=== PATIENT | female | born 1995 | race Caucasian/White ===

== ENCOUNTER 2022-05-19 12:23 | Emergency (ER) | payer OTHER, SELFPAY ==
[2022-05-19 13:30] VITALS: BP 126/73; PULSE 100; RESP 18; TEMP 36.1; O2SAT 99
--- NOTE | 2022-05-19 14:24 | ED.URI ---
HPI - URI/Sore Throat General Chief Complaint: Upper Respiratory Infection Stated Complaint: sorethroat Time Seen by Provider: 05/19/22 14:19 Source: patient and RN notes reviewed Mode of arrival: ambulatory Limitations: no limitations History of Present Illness HPI Narrative: 27-year-old female presented with complaint of sore throat for 2 days. She endorses mild postnasal drainage slight cough. She denies known sick contacts. She denies shortness of breath, wheezing, nausea vomiting, diarrhea, fevers or chills. She is 32 weeks gestation. She is taking Tylenol for symptoms. MD elicited complaint: cough Related Data Allergies Allergy/AdvReac Type Severity Reaction Status Date / Time No Known Allergies Allergy Unknown Verified 06/10/18 14:03 Review of Systems Review of Systems: ROS per HPI Exam Narrative: GENERAL:well-appearing, nontoxic no acute distress. HEAD: Normocephalic EYES: PERRLA, conjunctivae clear ENT: Mucous membranes moist. TMs pearly nunez with dull light reflex bilaterally; no tragal tenderness. Oropharynx erythematous without lesions or exudate, tonsils absent; no drooling, no hoarseness, no trismus, uvula midline. NECK: Supple. No lymphadenopathy CHEST: Clear to auscultation, breath sounds equal. HEART: Regular rate and rhythm. No murmur heard. SKIN: Warm, dry, no rash. Course Course Emergency Course: Patient is aware of diagnosis, understands and agrees to treatment plan. Anticipatory guidance given. Patient agrees to follow-up as directed and is aware of reasons to seek care at the emergency department. Portions of this record may have been created with voice recognition software Level of Care: Express Care Visit Vital Signs Vital signs: Vital Signs Temperature 97.0 F L 05/19/22 13:30 Pulse Rate 100 05/19/22 13:30 Respiratory Rate 18 05/19/22 13:30 Blood Pressure 126/73 05/19/22 13:30 Pulse Oximetry 99 05/19/22 13:30 Oxygen Delivery Room Air 05/19/22 13:30 Temperature 97.0 F L 05/19/22 13:30 Pulse Rate 100 05/19/22 13:30 Respiratory Rate 18 05/19/22 13:30 Blood Pressure 126/73 05/19/22 13:30 Pulse Oximetry 99 05/19/22 13:30 Oxygen Delivery Room Air 05/19/22 13:30 reviewed MDM - URI/Sore Throat MDM Narrative Medical decision making narrative: flu and strep reviewed with pt. Advised supportive measures and signs/symptoms to go to the ER. Pt is appropriate for outpt treatment and f/u. Differential Diagnosis Differential diagnosis: Likely upper respiratory infection, sinusitis and viral infection Lab Data Labs: Influenza A Screen Negative Reference Range: Negative Influenza B Screen Negative Reference Range: Negative Strep Screen Presumptive Negative *(Reference Range: Negative)* Discharge Plan Discharge Clinical Impression: Pharyngitis Patient Disposition: Home, Self-Care Condition: Stable Instructions: Pharyngitis (ED) Additional Instructions: Rapid strep swab was negative today You will be notified in a few days if the culture comes back positive for strep, and appropriate antibiotics will be called in at that time. if symptoms are due to a viral illness, it is not treated with antibiotics. Viral symptoms can be present for up to 10-14 days. Tylenol every 8 hours as needed for pain/fever Soft foods, cool liquids, warm tea. Gargle with warm saltwater twice a day. Chloraseptic spray and throat lozenges. Rest and stay hydrated. --Follow up with your PCP if symptoms are not improving, or sooner if symptoms are worsening. Go to the ER immediately if you cannot swallow your saliva, trouble breathing/wheezing, throat swelling, pain is persistent and severe Follow-up/Referrals: Louie,Ernestine Wynne EDGE ROLLER [Primary Care Provider] - Time of Di
== END 2022-05-19 14:30 | disposition home or self-care (01) ==
PROVIDERS: Emergency Provider Nurse Practitioner Family; PCP Registered Nurse
DX: J02.9 Acute pharyngitis, unspecified (principal)
CPT/HCPCS: 87081; 87147; 87804; 87880; 99213; G0463

== ENCOUNTER 2022-07-08 18:04 | Inpatient (IN) | payer OTHER, MEDICAID, SELFPAY ==
[2022-07-08] VITALS (11 sets, daily range): BP systolic 101–129; BP diastolic 44–78; PULSE 73–92; TEMP 36.5–36.8; BMI 48.8
--- NOTE | 2022-07-08 18:32 | LDADM ---
This patient, Mckenzie Briones, was admitted to Labor/Delivery/Recovery 107 on 07/08/22 at 18:04. Plans for labor, pain management and were discussed with patient. Patient/family oriented to hospital policies and general routines including ID bracelet, bed and alarms, visiting hours, pain management, procedures, bathroom and other care routines, personal items, smoking policy, room service/diet and guest tray routines, security routines, and visiting hours. Patient/Family are encouraged to report perceived risks to care and to ask questions if they do not understand what they are told or what they should do. See [facility]BIX for further documentation.
[2022-07-08 19:04] LABS: Basophils Percent Auto 0.2 % (0.2-1.2); Eosinophils Absolute Auto 0.1 K/mm3 (0-0.3); Eosinophils Percent Auto 0.5 % (0-4.4); Hematocrit 38.3 % (37.0-47.0); Immature Granulocyte Absolute 0.06 K/mm3 (0.00-0.031); Immature Granulocyte Percent A 0.5 % (0-0.5); Lymphocytes Absolute Auto 2.42 K/mm3 (0.9-3.2); Mean Corpuscular HGB Conc 33.9 g/dl (32-36); Mean Corpuscular Hemoglobin 29.6 pg (26-34); Mean Corpuscular Volume 87.2 fl (80-100); Mean Platelet Volume 10.6 fl (7.4-10.4); Monocytes Absolute Auto 0.8 K/mm3 (0.1-0.6); Monocytes Percent Auto 6.8 % (2.6-8.5); Neutrophils Absolute Auto 7.7 K/mm3 (1.3-6.7); Platelet Count Result 285 k/mm3 (150-375); Red Blood Count 4.39 M/mm3 (4.2-5.4); Red Cell Distribution Width 12.8 % (11.5-14.5)
[2022-07-08] MEDS: LACTATED RINGERS 1,000 ML 125 ML IV CONT (19:21)
[2022-07-08] MEDS: AMPICILLIN 2 GM/NS 100 ML 2 GM/100 ML BAG IVPB (19:22)
[2022-07-08] MEDS: DINOPROSTONE 10 MG VAG INSERT VAGINAL (20:57)
--- NOTE | 2022-07-08 21:21 | WPDANESEPP ---
Anes - Eval Pre Procedure Procedure: labor epidural Date/Time: 07/08/22 21:21 Pre Op Diagnosis: IOL Patient Data Age: 27 Gender: F Height: 1.75 m Weight: 150 kg Last Vital Signs Temp 36.8 C 07/08/22 18:41 Pulse 84 07/08/22 21:11 BP 104/53 L 07/08/22 21:11 O2 Del Method Room Air 07/08/22 18:29 Allergies Allergy/AdvReac Type Severity Reaction Status Date / Time No Known Allergies Allergy Unknown Verified 06/18/22 13:32 Home Medications Medication Instructions Recorded Confirmed Type amoxicillin 500 mg tablet 500 mg PO Q12H 10 days #20 tabs 05/21/22 Rx Laboratory Tests 07/08/22 07/08/22 07/08/22 18:14 18:14 18:14 WBC 11.0 K/mm3 H K/mm3 (4.5-10.0) RBC 4.39 M/mm3 M/mm3 (4.2-5.4) Hgb 13.0 g/dL g/dL (12.0-15.0) Hct 38.3 % % (37.0-47.0) MCV 87.2 fl fl (80-100) MCH 29.6 pg pg (26-34) MCHC 33.9 g/dl g/dl (32-36) RDW 12.8 % % (11.5-14.5) Plt Count 285 k/mm3 k/mm3 (150-375) MPV 10.6 fl H fl (7.4-10.4) Immature Gran % (Auto) 0.5 % % (0-0.5) Neut % (Auto) 70.0 % % (45.5-73.1) Lymph % (Auto) 22.0 % % (18.3-44.2) Milam % (Auto) 6.8 % % (2.6-8.5) Eos % (Auto) 0.5 % % (0-4.4) Baso % (Auto) 0.2 % % (0.2-1.2) Lymph # (Auto) 2.42 K/mm3 K/mm3 (0.9-3.2) Milam # (Auto) 0.8 K/mm3 H K/mm3 (0.1-0.6) Eos # (Auto) 0.1 K/mm3 K/mm3 (0-0.3) Baso # (Auto) 0.0 K/mm3 K/mm3 (0.0-0.1) Abs Immat Gran (auto) 0.06 K/mm3 H K/mm3 (0.00-0.031) Absolute Neuts (auto) 7.7 K/mm3 H K/mm3 (1.3-6.7) Absolute Nucleated RBC 0.0 K/mm3 K/mm3 (0.0-0.012) Nucleated RBC % 0.0 % % (0.0-0.2) RPR Pending Blood Type A Positive Antibody Screen Negative Patient hx anesthesia problems: none Family hx anesthesia problems: none Results Review: All pre-operative results and documents have been reviewed as part of the pre-operative evaluation. [facility] Past Medical History Medical History GERD (gastroesophageal reflux disease) Morbid obesity Psoriasis Family History Family History Grandparent Hypertension Chronic obstructive pulmonary disease Afib Neuropathy Social History Social History Smoking status: Never smoker Substance use: never Lack of Transportation: No Lack of Food: Never True Current Housing: I Have Housing Concerned About Future Housing: No Difficulty Paying Gas/Electric Bills: No Difficulty Paying for Meds: No Currently Unemployed: No Education: Trade/Vocational Certificate Difficulty w/ Childcare or Family Care: No Spiritual care concerns: No Exam Day of Procedure 07/08/22 21:21 Patient weight: morbidly obese Heart: regular rate and rhythm Lungs: normal air movement Airway: Mallampati scale Neurological: alert and oriented
[2022-07-08] MEDS: ONDANSETRON INJ 4 MG/2 ML VIAL IV PUSH (22:06)
[2022-07-08] MEDS: AMPICILLIN 1 GM/NS 50 ML 1 GM/50 ML BAG IVPB (23:33)
[2022-07-09] VITALS (239 sets, daily range): BP systolic 69–144; BP diastolic 43–89; PULSE 31–171; TEMP 36.3–37.6; O2SAT 77–100
[2022-07-09] MEDS: AMPICILLIN 1 GM/NS 50 ML 1 GM/50 ML BAG IVPB ×6 (03:30→23:43)
[2022-07-09] MEDS: OXYTOCIN 30 UNITS/NS 500 ML 30 UNITS/500 ML BAG 6 UNITS IV CONT (05:24)
[2022-07-09] MEDS: ONDANSETRON INJ 4 MG/2 ML VIAL IV PUSH ×3 (07:32→21:06)
--- NOTE | 2022-07-09 07:34 | WPDOBADMIT ---
Obstetrics - Admit Note Admission Note: record reviewed. No pertinent additions to the history and/or any subsequent changes in the physical findings that are not consistent with the expected course of the were found. IOL, /-2, AROM moderate amount of clear odorless fluid, anticipate vaginal delivery Additions to the history and/or subsequent changes in the physical findings follow. None.
[2022-07-09] MEDS: LACTATED RINGERS 1,000 ML 125 ML IV CONT ×2 (10:23→19:34)
[2022-07-09 12:38] LABS: Rapid Plasma Reagin Non-Reactive (NonReactive)
[2022-07-09] MEDS: CALCIUM CARBONATE (TUMS) 500 MG (200 MG ELEMENTAL) PO (19:20)
[2022-07-09] MEDS: FAMOTIDINE 20 MG/2 ML VIAL IV PUSH (20:24)
[2022-07-09] MEDS: diphenhydrAMINE HCl INJ 50 MG/ML VIAL 25 MG IV PUSH (22:03)
[2022-07-10] VITALS (44 sets, daily range): BP systolic 101–140; BP diastolic 43–121; PULSE 77–190; RESP 16–18; TEMP 36.4–37.6; O2SAT 91–100
[2022-07-10] MEDS: ACETAMINOPHEN 500 MG TABLET 1000 MG PO
--- NOTE | 2022-07-10 02:00 | PM.OBPRVD ---
OB - Delivery Note Procedure Delivery date: 07/10/22 Procedure: vaginal delivery Induction method: AROM, Per Pitocin Protocol and Per Cervidil Protocol Delivery monitor: External FHT and Internal Uterine Route of delivery: Episiotomy description: None Laceration Description: Perineal - 2nd Degree Delivery repair: vicryl Specimen: Yes Quantitative Blood Loss (ml): 420 Anesthesia type: Epidural Disposition: Floor [place] Baby Date of : 07/10/22 Time of : 01:39 Weeks of gestation at delivery: 39 gender: Female presentation: vertex position: Left Occiput Anterior Placenta delivery description: Spontaneous Cord Vessel Description: 3 Vessels, Clamped/Cut and Delayed Cord Clamping score one minute: 9 score five minutes: 9
--- NOTE | 2022-07-10 02:03 | PM.OBPRVD ---
OB - Delivery Note Procedure Laceration Description: Perineal - 2nd Degree Anesthesia type: Epidural Baby Date of : 07/10/22 Time of : 01:39 Weeks of gestation at delivery: 39 Infant gender: Female presentation: vertex position: Left Occiput Anterior Placenta delivery description: Spontaneous Cord Vessel Description: 3 Vessels, Clamped/Cut and Delayed Cord Clamping score one minute: 9 score five minutes: 9 Narrative: mother and baby skin to skin in stable condition
[2022-07-10] MEDS: IBUPROFEN 600 MG TABLET PO ×2 (04:09→18:24)
[2022-07-10] MEDS: ACETAMINOPHEN 325 MG TABLET 650 MG PO (07:53)
[2022-07-10] MEDS: DOCUSATE SODIUM 100 MG CAPSULE PO (07:54)
[2022-07-10] MEDS: MULTIVIT/MIN/PREN/FOL AC/IRON TABLET 1 TAB PO (07:54)
--- NOTE | 2022-07-10 16:08 | PC.NURSE ---
[id number] Introductions were made, then consulted with patient to assess needs related to . Mother led the conversation with her?plans to feed?her infant and the?experience so far. Resources provided for inpatient and outpatient services mom/baby guide. Mother voiced understanding of information and requests assistance. Mother works well with her with encouragement and education. Encouraged understanding of the benefits of skin to skin (demonstrating unwrapping infant and placing upright on her chest), stimulating with massage touch, changing positions to encourage wakefulness, how to watch for early feeding cues, responsive feeding, feeding on demand (aiming for 8-12 times in 24 hours, about every 2-3 hours), milk production, building/maintaining a milk supply, duration of feeding, signs of adequate intake/output and how to record on the feeding sheet. Reviewed positioning and ear, shoulder, hip alignment, supporting the breast to facilitate a deep latch, asymmetrical latch (off-center), leading with the chin with a big, open, wide gape and body close to mother. is sleepy and not motivated to open mouth to latch. is less than 12 hours old. Reviewed good handwashing when or touching the breast/nipples to prevent infection. Practiced the skill of hand expression and a few drops were fed to the infant. We discussed the option of initiating pumping along with the risks and benefits. had used the nipple shield with the two prior feedings and the risks and benefits were discussed regarding the use of the nipple shield. 1114 - Infant is in the nursery for testing. It has been 6 hours so Blood sugar will be checked. Mother requests to initiate pumping. Resources used to facilitate learning were used with the [visual handouts/QR codes/ tool/mom and baby guide]. Mother voiced understanding of skin to skin, stimulating with massage touch, responsive feedings, hand expressed colostrum, talking to to encourage if it has been 2 -2.5 hours since the start of the last , to call if does not latch, or if there is discomfort with . Resources provided for inpatient/outpatient with business card, feeding sheet and the mom/baby guide. Mother voiced understanding of information, demonstrated learning and will call if there is a request for assistance. 1130 Blood sugar resulted in 55 mg/dl. Breast pump provided due to ineffective . Instructions given on cleaning, care, usage, that there should be no pain, pumping schedule for milk production, collection, and storage of human milk. Parents are encouraged to record pumping schedule on the feeding sheet. Patient was assessed for correct placement, flange size, to pump for comfort and nipple stretching/stimulation for adequate milk production every 3 hours (8 times in 24 hours) 1-2 times at night. Mother voiced understanding of the education shared along with mom and baby guide for additional resource information. Reported to the primary RN.
[2022-07-11] MEDS: IBUPROFEN 600 MG TABLET PO (00:38)
[2022-07-11 02:55] LABS: Hematocrit 30.2 % (37.0-47.0); Hemoglobin 10.2 g/dL (12.0-15.0)
--- NOTE | 2022-07-11 07:34 | PM.OBPNVD ---
OB - PN: Subj Subjective Date/time seen: 07/11/22 07:34 s/p vaginal delivery day 1 OB - PN: Obj Data Labs 07/11/22 02:46 Labs: Laboratory Results - last 24 hr 07/11/22 02:46 Hgb 10.2 L Hct 30.2 L OB - PN A/P Plan day: 1 Plan: routine care and discharge home Time Spent With Patient Time: Total time spent is greater than 50% in coordination of care (as documented) at patient's floor/unit and/or counseling patient: Review of Systems Review of Systems: All systems reviewed & are unremarkable except as noted in HPI and below Exam Const: General: cooperative and healthy appearing
--- NOTE | 2022-07-11 07:36 | PM.OBDSVD ---
DS: Admitting Diagnosis Discharge Date 07/11/22 Admitting Diagnosis IOL DS: Discharge Diagnosis Discharge Diagnosis (1) Vaginal delivery: Code(s): O80 - Encounter for full-term uncomplicated delivery Status: Acute OB - DS: Summary OB Procedures : None OB Procedures Intrapartum: Spontaneous Vag Delivery OB Procedures: : None Time Spent with Patient Time attestation: Total time spent providing and/or coordinating discharge services: DS: Data Data Completed and Pending Pending studies at discharge: Pending at discharge 07/09/22 01:44 Surgical [PTH] Routine Labs on day of discharge: Labs from last 24 hours 07/11/22 02:46 Hgb 10.2 L Hct 30.2 L Discharge Plan Discharge Attending physician on discharge: Miki Wakefield Discharging Clinician: Zoe Jean Patient Disposition: Home, Self-Care Activity: pelvic rest Diet: regular Patient Instructions: Antibiotic Form Stand Alone Forms: General Discharge Information Follow-up/Referrals: Zoe Jean, CNM [Certified Nurse Land Leases And Rentals Manager] - 4 Weeks Discharge Medications: New ibuprofen 600 mg Tablet 600 mg PO Q6H PRN (Reason: Cramping) Qty: 30 0RF Continued 1 mg Tablet 1 tablet PO DAILY Date of admission: 07/08/22 18:04 Primary Care Provider: Louie,Ernestine Wynne Admitting Provider: Miki Wakefield Attending physician on admission: Miki Wakefield Condition: Stable
[2022-07-11 08:05] VITALS: BP 109/65; PULSE 75; RESP 16; TEMP 36.4; O2SAT 98
[2022-07-11 10:00] VITALS: PULSE 75; RESP 16; O2SAT 98
--- NOTE | 2022-07-11 14:37 | PC.NURSE ---
[id number] Mother led the conversation with her experience and plan to feed her so far and her ability to attempt latch optimally without discomfort, pumping consistently for milk production and supplement as needed until her milk comes to full volume to feed infant. Mother is feeding appropriately for growth of infant and understands stimulating infant to eat if needed. has had appropriate feedings in the last 24 hours meets the outcomes for weight, output and jaundice at this time. Mother states she is confident to continue feed her at home, when to call for assistance and denies any additional assistance or education at this time. Consult was offered to practice if mother chooses to request. Reinforced understanding of milk production, transition of milk, signs of adequate intake, transition of stool, prevention/relief of engorgement, responsive watching for feeding cues, the different methods of stimulating infant to breastfeed 2-3 hours after the start of the last feeding,pumping 8 times in 24 hours 1-2 times at night, community resources, medication information reviewed per [facility] and when to call a provider using the resource of the mom and baby guide. Mother voiced understanding of the education shared.
== END 2022-07-11 12:30 | disposition home or self-care (01) | DRG 807 ==
LOC: ANHLDR 18:08 → ANHOB2 07-10 04:37
PROVIDERS: Advanced Practice Midwife; Admitting Provider Obstetrics & Gynecology; PCP Registered Nurse; Visit Provider Obstetrics & Gynecology
DX: O99.824 Streptococcus B carrier state complicating childbirth (principal); Z37.0 Single live birth; O70.1 Second degree perineal laceration during delivery; O76 Abnormality in fetal heart rate and rhythm complicating labor and delivery; Z3A.39 39 weeks gestation of pregnancy
CPT/HCPCS: 36415; 85014; 85018; 85025; 86592; 86850; 86900; 86901; 88307; A9270; J0290; J1200; J2405; J2590; J2795; J7120

== ENCOUNTER 2025-05-08 11:13 | Emergency (ER) | payer OTHER, SELFPAY ==
--- NOTE | 2025-05-08 11:19 | ED_ITS ---
HPI - URI/Sore Throat General Chief Complaint: Upper Respiratory Infection Stated Complaint: Sore throat / Ear Pain Time Seen by Provider: 05/08/25 11:16 Source: patient Mode of arrival: ambulatory Limitations: no limitations History of Present Illness HPI Narrative: Mckenzie is a 30-year-old female patient presenting to the clinic today with complaints of sore throat, nasal congestion, ear pain. She reports her symptoms started on of last week with a sore throat and over the last few days she has developed some ear congestion. States she feels as though there is drainage going in the back of her throat. Denies any fevers, chills, body aches. Has been taking DayQuil/NyQuil for her symptoms. She is concerned that she may have strep throat. MD elicited complaint: sore throat and nasal congestion Related Data Home Medications ?Medication ?Instructions ?Recorded ?Confirmed ?Last Taken ?Type No Home Medications 05/08/25 05/08/25 U nknown History Allergies Allergy/AdvReac Type Severity Reaction Status Date / Time No Known Allergies Allergy Unknown Verified 05/08/25 11:16 Review of Systems Review of Systems: Pertinent positives per HPI. Patient denies any fever, chills, rash, headache, visual changes, dizziness, cough, shortness of breath, chest pain, palpitations, nausea, vomiting, diarrhea, constipation, abdominal pain, or any urinary issues. [facility] Past Medical History Medical History Psoriasis GERD (gastroesophageal reflux disease) Morbid obesity Family History Family History Grandparent Hypertension Chronic obstructive pulmonary disease Afib Neuropathy Social History Social History Substance use: never Lack of Transportation: No Lack of Food: Never True Current Housing: I Have Housing Concerned About Future Housing: No Difficulty Paying Gas/Electric Bills: No Difficulty Paying for Meds: No Currently Unemployed: No Education: Trade/Vocational Certificate Difficulty w/ Childcare or Family Care: No Spiritual care concerns: No Comments At the time of my signature, I reviewed and agree with the nursing past medical, surgical, social, and family history. There is no relevant family history pertinent to the patient complaint. Exam Narrative: General: Well-developed, morbidly obese, in no apparent distress Head: Normocephalic, atraumatic Eyes: Pupils equally round and reactive to light bilaterally, EOM intact, sclera and conjunctive clear, no discharge, lids normal Ears: TMs intact and congested, ear canals clear, no drainage, grossly hearing normal. Nose: Nares patent, clear nasal discharge, mild inflammation, no sinus tenderness. Mouth: Oral pharynx red without lesions or masses, good dentition, MMM. Postnasal drip Neck: Supple, trachea midline, no enlargement of anterior or posterior cervical nodes, no thyroid masses or goiter palpable. Cardio: Regular rate and rhythm, s1 and s2 normal, no murmur appreciated. Resp: Clear to auscultation bilaterally, no rhonchi, rales, wheezing or rubs Course Course Emergency Course: Portions of this record may have been created with voice recognition software. Level of Care: Express Care Visit Vital Signs Vital signs: Vital Signs Temperature 36.9 C 05/08/25 11:22 Pulse Rate 80 05/08/25 11:22 Respiratory Rate 16 05/08/25 11:22 Blood Pressure 142/90 H 05/08/25 11:22 Pulse Oximetry 98 05/08/25 11:22 Oxygen Delivery Room Air 05/08/25 11:22 Temperature 36.9 C 05/08/25 11:22 Pulse Rate 80 05/08/25 11:22 Respiratory Rate 16 05/08/25 11:22 Blood Pressure 142/90 H 05/08/25 11:22 Pulse Oximetry 98 05/08/25 11:22 Oxygen Delivery Room Air 05/08/25 11:22 Vital signs reviewed MDM - URI/Sore Throat MDM Narrative Medical decision making narrative: At the time of visit patient is resting comfortably on the exam table. Patient appears to be nontoxic. Complaints of sore throat, nasal congestion, ear pain. She reports her symptoms started on of last week with a sore throat and over the last few days she has developed some ear congestion. States she feels as though there is drainage going in the back of her throat. Denies any fevers, chills, body aches. Has been taking DayQuil/NyQuil for her symptoms. She is concerned that she may have strep throat. On exam patient has bilateral TM congestion, clear nasal drainage with mild anterior turbinates inflammation, oropharynx is mildly red with postnasal drip, no cervical lymphadenopathy, lung sounds are clear, heart rates regular rate and rhythm. Strep test was ordered. Labs: Strep test was negative in the clinic today. We will send strep for culture. Plan: I suspect patient has URI/postnasal drip. We will send strep for culture. Supportive measures were discussed with the patient and they voiced understanding discharge instructions and agrees to treatment plan. Return precautions reviewed Differential Diagnosis Differential diagnosis: Likely upper respiratory infection, otitis media, sinusitis, viral infection, bronchitis, influenza, pharyngitis and other (COVID) Lab Data Labs: Lab Results 05/08/25 Range/Units 11:47 POC Grp A Strep Screen Negative (Negative) Discharge Plan Discharge Clinical Impression: PND (post-nasal drip) Upper respiratory infection Qualifiers: URI type: unspecified URI Qualified Code(s): J06.9 - Acute upper respiratory infection, unspecified Patient Disposition: Home Condition: Stable Instructions: Antibiotic Form, Cold Symptoms (ED), Postnasal Drip (DC) Additional Instructions: Strep test was negative in the clinic today. We will send strep for culture if this comes back positive we will contact you in place you on antibiotics at that time. Increase fluids and stay well hydrated May try Sudafed for nasal congestion/ear congestion May take Tylenol or motrin as directed on bottle for pain/fever May use Flonase 1 spray in each nare daily May take OTC antihistamines such as Zyrtec or Claritin daily as directed on bottle May apply Vicks vapor rub to chest to open sinuses Sinus rinses for congestion Cepacol spray, cough drops, throat lozenges, warm tea with honey/lemon, gargle salt water to soothe throat BRAT diet for diarrhea Clear liquids x 24 hours then advance as tolerated for nausea/vomiting Go to the ED if you develop a worsening in your condition- high fever not controlled by Tylenol or Motrin, dehydration, weakness, lethargy, shortness of breath, or chest pain. Follow up with your PCP in 3-5 days if symptoms persist. Patient Language: Iraqi Prescriptions: No Action No Home Medications Follow-up/Referrals: Michele,Dory J., CLINICAL SPECIALIST [Primary Care Provider, Family Practice] Stand Alone Forms: Work/School Release IP Time of Disposition: 11:38 Quality NIHSS Nursing Documentation ED NIHSS nursing documentation: reviewed/agree
[2025-05-08 11:22] VITALS: BP 142/90; PULSE 80; RESP 16; TEMP 36.9; O2SAT 98
[2025-05-08 11:49] LABS: EDSTREPNEGPOS1 Negative (Negative)
--- OUTSIDE RECORDS SUMMARY | 2025-05-08 12:04 | XMS_ITS | Clinical Summary ---
Author Organization [facility] Address [address] [place] [address] Care Team Providers Care Anti Air Warfare Operations Officer Name Role Phone Dory Bautista NP Primary Care Provider [phone] Allergies No known active allergies Medications phentermine (ADIPEX-P) 37.5 MG capsuleIndicati ons:Morbid obesity with BMI of 50.0-59.9, adult (CMS/HCC),Encou nter for weight management Take 1 capsule (37.5 mg total) by mouth before breakfast. 30 capsule 2 04/06/2024 Active topiramate (TOPAMAX) 25 MG tabletIndicatio ns:Morbid obesity with BMI of 50.0-59.9, adult (CMS/HCC),Encou nter for weight management Take 1 tablet (25 mg total) by mouth every morning before breakfast. 30 tablet 2 04/13/2024 Active methylPREDNISol one, NEGIN, (MEDROL DOSEPAK) 4 MG tabletIndicatio ns:Pain of left heel 6 TABLETS ON DAY ONE, 5 TABLETS DAY TWO, 4 TABLETS DAY THREE, 3 TABLETS DAY FOUR, 2 TABLETS DAY FIVE, AND 1 TABLET DAY SIX- take it with meal 1 each 08/26/2024 Active Active Problems Problem Noted Date Diagnosed Date Not immune to rubella 01/01/2024 Overview (01/01/2024): MMR PP Cystic fibrosis carrier 02/19/2022 Overview (01/01/2024): FOB + for CF as well - genetic counseling schd on 02/19 at 0900 for virtual visit. 08/05/22 Update: [place] screen positive for CF. Endometrial polyp 07/03/2021 Infertility counseling 02/05/2021 Morbid obesity with BMI of 50.0-59.9, adult 01/27 Low back strain 01/04/2020 GERD (gastroesophageal reflux disease) 7 Resolved Problems Problem Noted Date Diagnosed Date Resolved Date Wears glasses 09/29/2017 03/09/2020 Immunizations Immunization Administration Dates Next Due COVID-19 Vaccine (Generic) 08/09/2021(Deferred: Patient Refused) Dtap (Acel-Immune) 11/08/1997, 6,02/07/1994,1993,1993 Dtap (Generic) 11/08/1997, 6,02/07/1994,1993,1993 Dtp/Hib 03/29/1996, 4,1993,1992 HPV 08/23/2009,01/20/2008,01/21/2007 Hepatitis A Vaccine - 2 Dose 08/23/2009,01/22/20 07 Hepatitis B Pediatric 11/08/1997,1993,01/27 Hib Vaccine, Prp-D 03/29/1996, 4,1993,1992 Influenza (Generic) 08/09/2021(Deferred: Patient Refused),08/17/2019,07/22/2015 MMR 03/29/1996 MMR (Generic) 12/13/1997,11/08/1997 Meningococcal(Mcv 4)Aka Menactra 01/20/2008 Opv 11/08/1997, 6,1993,1992 Td 02/26/2004 Td, Adsorbed, Preservative F ree, Adult Use, Lf Unspecified 02/26/2004 Tdap (Generic) 05/25/2013 Family History Medical History Relation Comments None Father Heart Maternal Grandmother Migraines Mother None Mother Breast Cancer Neg Hx Colon Cancer Neg Hx Prostate Cancer Neg Hx Relation Status Comments Father Alive Maternal Grandmother Alive Mother Alive Social History Tobacco Use Types Packs/Day Years Used Date Smoking Tobacco: Never Smokeless Tobacco: Never Tobacco Cessation:Counseling Given: No Comments:non smoker Alcohol Use Standard Drinks/Week Comments Yes 0 (1 standard drink = 0.6 oz pur e alcohol) On ocasions AUDIT-C Answer Date Recorded Frequency of Alcohol Consumption Monthly or less 06/14/2018 Average Number of Drinks 1 or 2 018 Frequency of Binge Drinking Never 05/29 PHQ-2 Answer Date Recorded Patient Health Questionnaire-2 Score 0 08/26/2024 Education Answer Date Recorded What is the highest level of school you have completed or the highest degree you have received? 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[employer] Not on file Not on file Not on file Last Filed Vital Signs Vital Sign Reading Time Taken Comments Blood Pressure 124/84 08/26/2024 7:07 AM MORTUARY BEAUTICIAN Pulse 96 08/26/2024 7:07 AM MORTUARY BEAUTICIAN Temperature 36.3 C (97.4 F) 08/26/2024 7:07 AM MORTUARY BEAUTICIAN Respiratory Rate 16 08/26/2024 7:07 AM MORTUARY BEAUTICIAN Oxygen Saturation 99% 08/26/2024 7:07 AM MORTUARY BEAUTICIAN Inhaled Oxygen Concentration - - Weight 146.1 kg (322 lb 3.2 oz) 08/26/2024 7:07 AM MORTUARY BEAUTICIAN Height 175.3 cm (5' 9) 08/26/2024 7:07 AM MORTUARY BEAUTICIAN Body Mass Index 47.58 08/26/2024 7:07 AM MORTUARY BEAUTICIAN Plan of Treatment Health Maintenance Due Date Last Done Comments Cervical Cancer Screening Pap Smear (Age 30 to 64) Every 3 Years 1993 Annual Physical 02/12/1996 Hepatitis C 2011 Cervical Cancer Screening Pap with HPV Testing (Age 30 to 64) Every 5 Years 2023 Cervical Cancer Screening with HPV 2023 COVID-19 Vaccine ( season) 2025 Influenza Adult (#1) 2025 05/02/2024, 04/22/2023, 06/02/2022, Additional history exists DTaP, Tdap and Td Vaccines (6 - Td or Tdap) 04/23/2032 04/23/2022, 05/25/2013, 02/26/2004, Additional history exists Hepatitis B Vaccines Completed 11/08/1997, 1993, 1993 HPV Vaccines Completed 08/23/2009, 12/28, 01/21/2007 Hepatitis A Vaccines Completed 08/23/2009, 01/22/20 07 PHQ-2 (Physician [place]) Completed 08/26/2024 Meningococcal B Vaccine Aged Out No l onger eligible based on patient's age to complete this topic Meningococcal Vaccine Aged Out No david abdelrahman eligible based on patient's age to complete this topic Pneumococcal Vaccine: Pediatrics (0 to 5 Years) and At-Risk Patients (6 to 49 Years) Aged Out No longer eligible based on patient's age to complete this topic RSV Immunizations Under 20 Months Aged Out No longer eligible based on patient's age to complete this topic Insurance [id number] Care Teams Anti Air Warfare Operations Officer Relationship Specialty [place] [address] [place] [address] PCP - General Nurse Practitioner Family 11/19/23
--- OUTSIDE RECORDS SUMMARY | 2025-05-08 12:05 | XMS_ITS | Encounter Summary ---
Author Organization [facility] Address [facility] [place] [address] Care Team Providers Care Wire Brusher Name Role Phone Chrissy Plummer BLOWN FILM EXTRUSION OPERATOR Primary Care Provider Unav Gavi Ruiz [facility] Primary Care Provider + Dory Bautista BLOWN FILM EXTRUSION OPERATOR Primary Care Provider [phone] Encounter Details Date Type Department Care Team (Late st Contact Info) Description 01/23/2021 YeHive Message Enc [facility] Medical Group Family & Internal Medicine [facility] [id number] [place] [id number] Chrissy Plummer NP RE: Follow Up/Update Social History Tobacco Use Types Packs/Day Years Used Date Smoking Tobacco: Never Smokeless Tobacco: Never Alcohol Use Standard Drinks/Week Comments Yes 0 (1 standard drink = 0.6 oz pur e alcohol) drinks on occassion AUDIT-C Answer Date Recorded Frequency of Alcohol Consumption Monthly or less 06/14/2018 Average Number of Drinks 1 or 2 018 Frequency of Binge Drinking Never 05/29 PHQ-2 Answer Date Recorded PHQ-2 Score - If the patient scores above 3, please move on to questions 3-9 0 12/19/2020 Education Answer Date Recorded What is the highest level of school you have completed or the highest degree you have received? 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[employer] Not on file Not on file Not on file documented as of this encounter Plan of Treatment Not on file documented as of this encounter Visit Diagnoses Not on filedocumented in this encounter Additional Health Concerns Assessment Noted Time PHQ-9 Depression Total Score: 0 12/20/19 9:02 AM CDT documented as of this encounter Care Teams Wire Brusher Relationship Specialty Start Date End Date Chrissy Plummer NP PCP - General NURSE PRACTITIONER 06/14/18 05/01/21 [facility] PCP - General Nurse Practitioner Family 05/02/2107/31 Dory Bautista BLOWN FILM EXTRUSION OPERATOR [address] [address] PCP - General Nurse Practitioner Family 11/19/23 documented as of this encounter
--- OUTSIDE RECORDS SUMMARY | 2025-05-08 12:05 | XMS_ITS | Encounter Summary ---
Author Organization [facility] Address [address] [place] [address] Care Team Providers Care Social Security Benefits Interviewer Name Role Phone Gavi [facility] Primary Care Provider + Dory Bautista NP Primary Care Provider [phone] Encounter Details Date Type Department Care Team (Late st Contact Info) Description 12/14/2021 PrintEco Message [facility] Patient Accounts [address] [place] [address] [facility] Provider Declined Auto Payment Social History Tobacco Use Types Packs/Day Years Used Date Smoking Tobacco: Never Smokeless Tobacco: Never Comments:non smoker Alcohol Use Standard Drinks/Week Comments [...] Sex Assigned at Female 08/17/2019 3:31 PM PLUMBER APPRENTICE Legal Sex Female 9:30 PM CDT Gender Identity Female 08/17/2019 3:31 PM PLUMBER APPRENTICE Sexual Orientation Straight 06/14/2018 1: 09 PM PLUMBER APPRENTICE Occupation Industry Job Start Date Job End Date 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- [employer] Not on file Not on file Not on file documented as of this encounter Plan of Treatment Not on file documented as of this encounter Visit Diagnoses Not on filedocumented in this encounter Additional Health Concerns Assessment Noted Time PHQ-9 Depression Total Score: 0 12/20/19 21 9:02 AM CDT documented as of this encounter Care Teams Social Security Benefits Interviewer Relationship Specialty Start Date End Date Gavi Black FNP-BC PCP - General Nurse Practitioner Family 05/02/2107/31 Dory Bautista, VISH [address] [place] [address] PCP - General Nurse Practitioner Family 11/19/23 documented as of this encounter
--- OUTSIDE RECORDS SUMMARY | 2025-05-08 12:05 | XMS_ITS | Encounter Summary ---
Author Organization [facility] Address [address] [place] [address] Care Team Providers Care Cutter Finisher Name Role Phone Cecilianuryzander [facility] Primary Care Provider + Dory Bautista NP Primary Care Provider [phone] Encounter Details Date Type Department Care Team (Late st Contact Info) Description 07/01/2023 Mayvenn Message Enc [facility] Medical Group Family & Internal Medicine [facility] [address] [place] [address] [facility] refill Social History Tobacco Use Types Packs/Day Years [...] Date Recorded Patient Health Questionnaire-2 Score 0 04/08/2023 Education Answer Date Recorded What is the highest level of school you have completed or the highest degree you have received? 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[employer] Not on file Not on file Not on file documented as of this encounter Plan of Treatment Not on file documented as of this encounter Visit Diagnoses Not on filedocumented in this encounter Additional Health Concerns Assessment Noted Time PHQ-9 Depression Total Score: 0 12/20/19 21 9:02 AM CDT documented as of this encounter Care Teams Cutter Finisher Relationship Specialty Start Date End Date Gavi Black FNP- PCP - General Nurse Practitioner Family 05/02/2107/31 [place] [address] [place] [address] PCP - General Nurse Practitioner Family 11/19/23 documented as of this encounter
--- OUTSIDE RECORDS SUMMARY | 2025-05-08 12:05 | XMS_ITS | Data Portability ---
Author Organization [facility] Address [address] [place] [address] Assessment Encounter Date Assessment Date Assessment LastModified by Organization Details LastModified Time 08/15/2022 08/15/2022 may have slynd if pt desires BCM , f/u wwe Not available 08/15/2022 13:38:38 03/25/2023 03/25/2023 Annual gynecological exam performed. Patient will come back in a year unless there are new symptoms. Suggest Calcium with Vitamin D if not eating in diet. Patient advised to get annual flu shot. Recommend yearly physicals and preform monthly breast exams. Genetic testing is available for patients with family history of cancer. Engage in safe sexual practices, use condoms. Encouraged to have daily exercise. Avoid tobacco and illicit drugs, moderation of alcohol. If BMI greater than 25 dietary consult advised. If you have any questions please call or email. Not available 03/25/2023 20:16:30 08/24/2024 08/24/2024 Annual gynecological exam performed. Patient will come back in a year unless there are new symptoms. Suggest Calcium with Vitamin D if not eating in diet. Patient advised to get annual flu shot. Recommend yearly physicals and preform monthly breast exams. Genetic testing is available for patients with family history of cancer. Engage in safe sexual practices, use condoms. Encouraged to have daily exercise. Avoid tobacco and illicit drugs, moderation of alcohol. If BMI greater than 25 dietary consult advised. If you have any questions please call or email. start pnv daily if desires Not available 08/24/2024 11:35:33 Plan of Treatment Reminders Order Date Submit Date Provider Last Modified By Organization Details Last Modified Time Details Appointments None record ed. Lab None record ed. Referral None record ed. Procedures None record ed. Surgeries None record ed. Imaging US, obstet magan, follow -up 2022 023 YONI [place], [address], [place], [address], 3 21:12:00 US, obstet magan, biophy sical profil e + non-st ress test 2022 023 [email or web address] [place], [address], [place], [address], 3 20:37:40 non-st ress test 2022 023 [email or web address] [place], [address], [place], [address], 3 11:44:03 Medication Orders None record ed. Patient TargetsNo targets recorded. Patient InstructionsNo instructions recorded. Reason for Referral None Reported. Results Created Date Observation Date Name Description Value Unit Range Abnormal Flag Note LastModifiedBy Organization Detail LastModifiedTime 06/11/20 22 06/11/2022 CULTU RE: GROUP B STREP SCREE N, REFLE X SUSCE PTIBI LITY result report SEE RESULT S BELOW abnormal Test: Cultu re: Group B Strep , Refle x Susce ptibi lity ([facility] ) Speci men Sourc e: Vagin a/Rec [place] Speci men Type: Vagin al/Re ctal Speci men Date: 06/11 6:07 PM Resul t Date: 06/16 5:18 PM Resul t Statu s: Final resul t Abnor mal: Yes Resul ting Lab: [facility] [address] [facility] [address] Tel: CULTU RE ----- ----- ----- --- Posit doc for Strep tococ cus agala ctiae (Grou p B) (Abno rmal) Clind amyci n = resis tant, eryth romyc in = resis tant. Cefaz carlos enrique may be used for intra partu m proph ylaxi s in penic illin -beatris rgic women at low risk, and Vanco mycin is recom nancy d for women at high risk for anaph ylaxi s. Susfatoumata ptibi lity testi ng is not neces joanna for these drugs . Not Available [facility] (Lab) [address] [facility], [place], [address], 06/16/2022 18:20:56 08/24/19 25 08/24/2024 IMAGE GUIDE D PAP AND HPV REGAR DLESS image guided Pap, HPV regardless of Pap result SEE RESULT S BELOW CASE REPOR T: Cytol ogy Gynec ologi agapito Repor t Case: [id number] Autho concepción correa Provi nury: Zoe Bob NP Colle cted: 08/24 1457 Order ing Locat ion: [place] Path[facility] Recei rasheed: 08/25 0840 First Scree n: Lata Sahu ret, CT Rescr een: Reginald Oswald Speci men: Rossi hess Pap - Image d, Cervi x STATE MENT OF ADEQU ACY: Satis facto ry for evalu ation Trans forma tion zone compo nent prese nt ----- ----- ----- ----- ----- ----- ----- ----- ----- ----- ----- ----- ----- ----- ----- ----- ----- ---- FINAL DIAGN OSIS: Negat doc for Intra epith elial Ryan melendez or Mindy root (NIL) . Marcella mendez d by Reginald galicia on 025 at 1026 BRAZER PRODUCTION LINE ----- ----- ----- ----- ----- ----- ----- ----- ----- ----- ----- ----- ----- ----- ----- ----- ----- ---- HPV RESUL TS: HPV mRNA E6/E7 : No HPV mRNA Detec solange NOTE: This high risk HPV mRNA assay detec ts fourt een high- risk HPV types (16, 18, 31, 33, 35, 39, 45, 51, 52, 56, 58, 59, 66, 68) witho ut diffe renti ation . COMME NT: This speci men was revie wed by a Cytot echno logis t and/o r Patho logis t (as indic ated in this repor t) after evalu ation using the Thinp rep Imagi ng Syste m. CLINI AGAPITO INFOR MATIO N: Menst rual Statu s: LMP (if appli cable ): Clini agapito Histo ry/Pr eviou s Pap: Type of Neopl lupillo (if appli cable ): Signi fican t Clini agapito Findi ngs: Other Histo ry: Hormo anival (if appli cable ): PAP EDUCA BRANDI L NOTE: The Pap Test is a scree jimena test with an inher ent false negat doc rate. Liqui d-bas ed sampl ing may decre ase, but will not elimi randi, false negat doc resul ts. A negat doc resul t does not precl ude the prese nce and/o r devel opmen t of disea se, since the prese nce of abnor mal cells in the sampl e depen ds on the locat ion of the lesio n and sampl ing techn ique. Elena nued regul ar scree jimena is the best metho d of cance r preve ntion . If repor solange cytol ogic findi ng do not corre late with physi agapito and/o r histo rical findi ngs, furth er inves tigat ion is recom nancy d, as clini sebastian león nted. Not Available [facility] (Lab) [address], [place], [address], 08/29/2024 11:29:50 06/04/20 22 06/04/2022 non-s tress test No observ ation record ed. [email or web address] [place] [address], [place], [address], 06/04/2022 12:09:40 06/04/20 22 06/04/2022 US, obste tric, follo w-up No observ ation record ed. [email or web address] [address], [place], [address], 06/04/2022 20:33:42 06/04/20 22 06/04/2022 US, obste tric, follo w-up No observ ation record ed. [email or web address] [place] [address], [place], [address], 06/04/2022 18:54:32 06/04/20 22 06/04/2022 US, obstkeron tric, bioph ysica l profi le + non-s tress test No observ ation record ed. [email or web address] [place] [address], [place], [address], 06/04/2022 18:54:22 06/11/20 22 06/11/2022 non-s tress test No observ ation record ed. [email or web address] [place] [address], [place], [address], 06/11/2022 11:15:36 06/11/20 22 06/11/2022 US, obste tric, follo w-up No observ ation record ed. [email or web address] [address], [place], [address], 06/11/2022 23:17:14 06/11/20 22 06/11/2022 US, obste tric, bioph ysica l profi le + non-s tress test No observ ation record ed. [email or web address] [place] [address], [place], [address], 06/11/2022 13:54:21 06/18/20 22 06/18/2022 US, obste tric, bioph ysica l profi le + non-s tress test No observ ation record ed. [email or web address] [place] [address], [place], [address], 06/18/2022 13:50:37 06/18/20 22 06/18/2022 US, obste tric, bioph ysica l profi le + non-s tress test No observ ation record ed. [email or web address] [address], [place], [address], 06/18/2022 22:29:51 06/18/20 22 06/18/2022 non-s tress test No observ ation record ed. [email or web address] [place] [address], [place], [address], 06/18/2022 13:34:45 06/25/20 22 06/25/2022 non-s tress test No observ ation record ed. [email or web address] [place] [address], [place], [address], 06/25/2022 11:06:14 06/25/20 22 06/25/2022 US, obste tric, bioph ysica l profi le + non-s tress test No observ ation record ed. [email or web address] [place] [address], [place], [address], 06/25/2022 13:53:57 06/25/20 22 06/25/2022 US, obste tric, bioph ysica l profi le + non-s tress test No observ ation record ed. YONI [address], [place], [address], 06/27/2022 15:48:22 07/02/19 23 07/02/2022 non-s tress test No observ ation record ed. [email or web address] [place] [address], [place], [address], 07/02/2022 11:44:53 07/02/19 23 07/02/2022 US, obste tric, follo w-up No observ ation record ed. [email or web address] r[address] [place] [address] [address], [place], [address], 07/02/2022 12:55:45 07/02/19 23 07/02/2022 US, obste tric, bioph ysica l profi le + non-s tress test No observ ation record ed. [email or web address], [place], [address], 07/02/2022 12:55:33 07/02/19 23 07/02/2022 US, obste tric, follo w-up No observ ation record ed. YONI [address], [place], [address], 07/15/2022 11:21:53 Result Notes None recorded. Problems Name Problem SNOMED Code Status Onset Date Resolution Date Notes Provider Name and Address Organization Details Recorded Time Obesity 483762236 Completed class 3 BMI:46.8 Janina zambrano [facility] 3 16:43:16 Rubella non-immu ne 884241018 Completed MMR PP Janina zambrano [facility] 3 16:43:16 Carrier of cystic fibrosis gene mutation [id number] Completed FOB + for CF as well - genetic counseli chris lewis on 02/19 at 0900 for virtual visit. 3 Update: screen positive for CF. Janina Palumbo null, [facility] 3 16:43:16 Body mass index 40+ - severely obese 218301788 Active 2019 Pattie Orosco MD [address], [place], [address], [place] [facility] 0 15:47:07 Problem Notes None recorded. Procedures Surgical History Date Name Laterality Status Provider Name and Address Organization Details Recorded Time 08/24/19 25 Date of Last Pap Smear completed [facility] 08/24/2024 11:23:01 06/29/19 14 extraction of wisdom tooth completed [facility] 01/29/2022 13:10:28 06/29/19 05 Tonsillectomy completed [facility] 01/29/2022 13:10:10 Imaging Results None recorded. Procedure Notes None recorded. Medical Equipment None Reported. Allergies No known drug allergies Medications Name Sig Start Date Stop Date Status Note LastModified by Organization Details LastModified Time amoxicillin 500 mg capsule TAKE 1 CAPSULE BY MOUTH TWICE DAILY 12/04 completed Not Available Not Available Not Available prednisone 10 mg tablet 12/04 completed Not Available Not Available Not Available Lidocaine Viscous 2 % mucosal solution 08/24 completed Not Available Not Available Not Available clomiphene citrate 50 mg tablet 12/04 completed Not Available Not Available Not Available hydrocodone 5 mg-acetamin ophen 325 mg tablet TK ONE TO TWO TS PO Q 6 H PRN P 12/05 completed Not Available Not Available Not Available phentermine 15 mg capsule TAKE 1 CAPSULE BY MOUTH EVERY MORNING BEFORE BREAKFAST 08/24 completed Not Available Not Available Not Available topiramate 25 mg tablet 08/24 completed Not Available Not Available Not Available phentermine 37.5 mg tablet 08/24 completed Not Available Not Available Not Available phentermine 30 mg capsule TAKE 1 CAPSULE BY MOUTH DAILY 12/04 completed Not Available Not Available Not Available amoxicillin 500 mg tablet TAKE 1 TABLET BY MOUTH EVERY 12 HOURS FOR 10 DAYS 06/04 completed Not Available Not Available Not Available ondansetron 8 mg disintegrat ing tablet DISSOLVE 1 TABLET ON THE TONGUE TWICE DAILY 08/15 completed Not Available Not Available Not Available methocarbam ol 750 mg tablet 12/05 completed Not Available Not Available Not Available mometasone 0.1 % topical ointment APPLY TOPICALLY TO THE AFFECTED AREA DAILY 12/04 completed Not Available Not Available Not Available ergocalcife rol (vitamin D2) 1,250 mcg (50,000 unit) capsule TAKE 1 CAPSULE BY MOUTH EVERY WEEK 12/04 completed Not Available Not Available Not Available ibuprofen 600 mg tablet TAKE 1 TABLET BY MOUTH EVERY 6 HOURS NEEDED FOR CRAMPING 08/15 completed Not Available Not Available Not Available ipratropium bromide 42 mcg (0.06 %) nasal spray 08/24 completed Not Available Not Available Not Available hydrocortis one 2.5 % topical ointment APPLY TOPICALLY TO THE AFFECTED AREA TWICE DAILY 12/04 completed Not Available Not Available Not Available phentermine 37.5 mg capsule TAKE 1 CAPSULE BY MOUTH DAILY active Not Available Not Available No t Available naproxen 500 mg tablet 12/05 completed Not Available Not Available Not Available famotidine 03/25 completed Not Available Not Available Not Available 03/25 completed Not Available Not Available Not Available Vitals Date Recorded Body height Body mass index (BMI) Body weight Systolic And Diastolic Provider Name and Address Organization Details Last Updated DateTime 07/02/2022 175.26 cm 48 kg/m2 564153.52 025 g 132/84 mm[Hg] Debo Gayle [facility] 07/02/2022 11:39:03 Date Recorded Body weight Provider Name an d Address Organization Details Last Updated DateTime 08/15/2022 589316.53890 g Janina Palumbo [facility] 10/13/2022 16:43:20 Date Recorded Body height Body mass index (BMI) Systolic And Diastolic Provider Name and Address Organization Details Last Updated DateTime 08/15/2022 175.26 cm 45.2 kg/m2 122/77 mm[Hg] Debo Gayle [facility] 08/15/2022 12:59:50 Date Recorded Body height Body mass index (BMI) Body weight Systolic And Diastolic Provider Name and Address Organization Details Last Updated DateTime 08/24/2024 175.26 cm 47.3 kg/m2 482607.56 g 128/83 mm[Hg] Debo Gayle [facility] 08/24/2024 11:22:23 Date Recorded Body height Body mass index (BMI) Body weight Systolic And Diastolic Provider Name and Address Organization Details Last Updated DateTime 03/25/2023 175.26 cm 48.7 kg/m2 941974.48 g 126/70 mm[Hg] Debo Gayle [facility] 03/25/2023 16:58:46 Social History Question Answer Notes LastModified by Organizat ion Details LastModified Time Tobacco Smoking Status Never Smoker Sophie zambrano, [facility] 03/25/2023 16:41:34 Do You Have An Advance Directive? No Information n ot available 12/04/2021 If You Are , What Was Your Level Of Alcohol Consumption Prior To ? Occasional [email or web address] Information not available 03/25/2023 How Many Years Have You Consumed Alcohol? 7 [email or web address] Information not available 01/29/2022 Are You Blind Or Do You Have Difficulty Seeing? No Information n ot available 12/04/2021 What Is Your Level Of Caffeine Consumption? Occasional Information not available 12/04/2021 How Much Tobacco Do You Chew? None Information not available 12/04/2021 In The 14 Days Before Symptom Onset, Have You Had Close Contact With A Laboratory-confirm ed COVID-19 While That Case Was Ill? No Information n ot available 12/04/2021 In The 14 Days Before Symptom Onset, Have You Had Close Contact With A Person Who Is Under Investigation For COVID-19 While That Person Was Ill? No Information not available 12/04/2021 Have You Been To An Area Known To Be High Risk For COVID-19? No Information not available 12/04/2021 Are You Deaf Or Do You Have Serious Difficulty Hearing? No Information not available 12/04/2021 What Type Of Diet Are You Following? REGULAR Information n ot available 12/04/2021 What Is The Highest Grade Or Level Of School You Have Completed Or The Highest Degree You Have Received? [id number] Information not available 01/29/2022 Are There Any Guns Present In Your Home? No Information not available 12/04/2021 Do You Use Protection During Sex? No Information not available 12/04/2021 Do You Use Your Seat Belt Or Car Seat Routinely? Yes [email or web address] Information not available 01/29/2022 Do You Have Smoke And Carbon Monoxide Detectors In Your Home? Yes [email or web address] Information not available 01/29/2022 How Much Tobacco Do You Smoke? No Information not available 12/04/2021 Do You Use Sunscreen Routinely? No Information not available 12/04/2021 Have You Used IV Drugs? No Information not available 12/04/2021 Do You Have Difficulty Walking Or Climbing Stairs? No [email or web address] Information not available 03/25/2023 Sex: Unknown Functional Status Question Answer Note LastModified by Organizat ion Details LastModified Time Do you use any illicit or recreational drugs? No Information not available 12/04/2021 What is your level of alcohol consumption? None Information not available 12/04/2021 Are you able to walk independently without assistance or assistive devices? YESWOREST [email or web address] Information not available 01/29/2022 Are you able to care for yourself independently? 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 No [email or web address] Information not available 03/25/2023 What is your exercise level? Moderate Information not available 12/04/2021 Mental Status Question Answer Note LastModified by Organization D etails LastModified Time Do you feel stressed (tense, restless, nervous, or anxious, or unable to sleep at night)? [id number] Information not available 12/04/2021 Family History Nothing Reported. Medical History Condition Response Allergies (Food, seasonal, environmental ) N Other N Breast Cancer N Drug/Latex Allergies/Reactions N Blood Transfusion N Dermatologic Disorders N Lung Disease N Defects or Inherited Disease N Breast Problem N Gestational Diabetes N Hematologic disorders N Anesthesia Complications N History of STI N Deep Vein Thrombosis N Polycystic ovary syndrome N Anxiety Disorder N Autoimmune disease N Arthritis N Infertility N Polyps N Acid Reflux (GERD) Y History of abnormal pap N Cancer N Stroke N Varicosities N Neurologic/Epilepsy N Endometriosis N High Cholesterol N Headaches N Fibromyalgia N Kidney Disease N Heart Problems N Kidney or Bladder Problems N Thyroid Problems N GI Problems N Eating Disorder N Anemia N Art (IVF or FET) N Psychiatric Illness N Ovarian Cancer N Diabetes N Pulmonary (TB, Asthma) N Hepatitis/Liver Disease N Eczema N Urinary Tract Infection N Abuse/Domestic Violence N Asthma N Trauma/Violence N Depression/ depression N Heart Disease N Pre-Eclampsia N Hypertension N Osteoporosis N Thrombophilias N Gynecological History Statement/Question Response Date of LMP 08/10/2024 On BCP's at Conception? N N Was last menstrual period normal Y STIs/STDs N HPV Vaccine N Duration of Flow (days) 5 Current Control Method None Date of control 1993 Frequency of Cycle (Q days) 5 Sexually Active? Y Age of first menstrual cycle 10 Date of Last Pap Smear 08/24/2024 Sexual Problems? N LMP Approximate N Obstetrics History GPAL:G 1 P 1 0 0 1 Type Value Full Term 1 Living 1 Total 1 Past Encounters Encounter ID Performer Location Encounter Start Date Encounter Closed Date Diagnosis/Indication Diagnosis SNOMED-CT Code Diagnosis ICD10 Code Diagnosis IMO Codes Diagnosis Note [id number] Pattie Orosco MD [place] [address] [address] 06/13/2020 15:40:55 06/13/2020 16:34:13 Gynecologic examination 79521872 Z01.419 Venereal d isease screening 495983120 Z11.3 Reproducti ve care management 446492367 Z31.9 [id number] Pattie Orosco MD [place] [address] [address] 12/05/2020 14:11:04 12/05/2020 15:10:41 Body mass index 40+ - severely obese 468691319 Z68.42 Female infertility 89680 08 N97.9 Infertility study 009330 06 Z31.41 Vitamin D deficiency 347 80466 E55.9 [id number] Pattie Orosco MD [place] [address],[place] [address] 12/26/2020 14:54:43 12/26/2020 15:46:10 Female infertility 1252264 N97.9 [id number] MD Gwen Licea [address],[place] [address] 12/04/2021 16:13:25 12/04/2021 16:43:26 [id number] MD Gwen Licea [address],[place] [address] 12/04/2021 16:18:16 12/04/2021 17:27:47 Nausea and vomiting 18785715 R11.2 This patient is a 26-year-ol d female with amenorrhea . Her last menstrual period was on October 06, 2021. She has a positive test which makes her approximat raji 8 weeks and 3 days gestation. She is certain of her last menstrual period. Talked about restrictio ns in . We talked about dietary restrictio ns, exercise restrictio ns, medication restrictio ns. Talked about genetic screening. Talked about the 12 week ultrasound . Talked about some details about care. Talked about her nausea. She has had some nausea and vomiting. We agreed to treat with Zofran. She understand s there is little risk with that. She return in 4 weeks for initial visit. Amenorrhea 99071893 N91. 2 [id number] MD Gwen Licea [address],[place] [address] 01/01/2022 15:47:47 01/01/2022 17:35:00 Routine care 685361662 Z34.91 [id number] MD Gwen Licea [address],[place] [address] 01/01/2022 15:48:47 01/01/2022 17:34:38 Routine care 011324686 Z34.91 [id number] Ramirez Wakefield MD [place] [address],[place] [address] 01/29/2022 12:08:49 01/29/2022 13:05:33 [id number] Zoe [facility] [address],[place] [address] 01/29/2022 12:23:03 01/29/2022 13:30:54 Routine care 197018523 Z34.92 [id number] Ramirez Wakefield MD [place] [address],[place] [address] 02/26/2022 09:18:48 02/26/2022 10:51:11 screening for malformation 747204446 Z36.3 [id number] Zoe [facility] [address],[place] [address] 02/26/2022 09:19:16 02/26/2022 11:19:54 Routine care 239734646 Z34.92 [id number] Ramirez Wakefield MD [place] [address],[place] [address] 03/26/2022 14:51:07 03/26/2022 15:57:21 screening 524144185 Z36.2 [id number] Ramirez Wakefield MD [place] [address],[place] [address] 03/26/2022 14:53:43 03/26/2022 16:48:19 Routine care 862991616 Z34.91 [id number] MD Gwen Jo [address],[place] [address] 04/15/2022 14:38:17 04/15/2022 15:56:33 Maternal obesity complicating , childbirth and the puerperium, antepartum 7599614538 07 O99.212 Z36.2 Z3A.27 [id number] Pattie Orosco MD [place] [address],[place] [address] 04/15/2022 14:39:16 04/15/2022 17:17:00 Routine care 122410904 Z34.02 Maternal o besity complicating , childbirth and the puerperium, antepartum 1836897668 07 O99.212 Z36.2 Z3A.27 [id number] Ramirez Wakefield MD [place] [address],[place] [address] 04/30/2022 16:27:30 04/30/2022 18:00:34 Routine care 105872844 Z34.91 [id number] [facility] [address],[place] [address] 05/14/2022 14:00:37 05/14/2022 15:42:25 Routine care 254590706 Z34.92 [id number] [facility] [address],[place] [address] 05/28/2022 11:02:32 05/28/2022 16:00:49 Routine care 776976620 Z34.92 [id number] Ramirez Wakefield MD [place] [address],[place] [address] 06/04/2022 11:01:57 06/04/2022 12:25:28 Maternal obesity complicating , childbirth and the puerperium, antepartum 2600288951 07 O99.215 [id number] Ramirez Wakefield MD [place] [address],[place] [address] 06/04/2022 11:02:22 06/05/2022 14:12:38 Maternal obesity complicating , childbirth and the puerperium, antepartum 4874305175 07 O99.213 Z3A.34 [id number] [facility] [address],[place] [address] 06/04/2022 11:02:45 06/04/2022 15:16:05 [id number] Ramirez Wakefield MD [place] [address],[place] [address] 06/11/2022 10:15:30 06/11/2022 11:24:22 Maternal obesity complicating , childbirth and the puerperium, antepartum 3163771095 07 O99.213 Z3A.34 [id number] Ramirez Wakefield MD [place] [address],[place] [address] 06/11/2022 10:15:57 06/11/2022 14:54:23 Maternal obesity complicating , childbirth and the puerperium, antepartum [id number] 07 O99.213 Z3A.35 [id number] [facility] [address],[place] [address] 06/11/2022 10:16:18 06/11/2022 14:53:31 Routine care [id number] Z34.92 [id number] Ramirez Wakefield MD [place] [address],[place] [address] 06/18/2022 10:19:28 06/18/2022 18:12:04 Maternal obesity complicating , childbirth and the puerperium, antepartum [id number] 07 O99.213 Z3A.36 [id number] Ramirez Wakefield MD [place] [address],[place] [address] 06/18/2022 10:20:05 06/19/2022 14:06:40 Maternal obesity complicating , childbirth and the puerperium, antepartum [id number] 07 O99.213 Z3A.36 [id number] [facility] [address],[place] [address] 06/18/2022 10:20:28 06/18/2022 13:15:47 Routine care [id number] Z34.92 [id number] Ramirez Wakefield MD [place] [address],[place] [address] 06/25/2022 10:09:22 06/25/2022 11:49:00 Maternal obesity complicating , childbirth and the puerperium, antepartum [id number] 07 O99.213 Z3A.36 [id number] Ramirez Wakefield MD [place] [address],[place] [address] 06/25/2022 10:10:41 06/25/2022 11:40:22 Maternal obesity complicating , childbirth and the puerperium, antepartum [id number] 07 O99.213 Z3A.37 [id number] [facility] [address],[place] [address] 06/25/2022 10:11:31 06/25/2022 12:10:08 Routine care [id number] Z34.92 [id number] Ramirez Wakefield MD [place] [address],[place] [address] 07/02/2022 10:11:06 07/02/2022 11:08:39 Maternal obesity complicating , childbirth and the puerperium, antepartum [id number] 07 O99.213 Z3A.37 Body mass index 40+ - severely obese [id number] Z68.42 [id number] Ramirez Wakefield MD [place] [address],[place] [address] 07/02/2022 10:12:36 07/02/2022 11:41:16 Maternal obesity complicating , childbirth and the puerperium, antepartum [id number] 07 O99.213 Z3A.38 [id number] Zoe Jean CNM [place] [address],[place] [address] 07/02/2022 10:13:05 07/02/2022 12:06:03 [id number] Zoe Jean CNM [place] [address],[place] [address] 08/15/2022 12:16:20 08/15/2022 13:47:33 care 969487512 Z39.2 normal pp exam [id number] Zoe Jean CNM [place] [address],[place] [address] 03/25/2023 16:41:01 03/26/2023 17:33:09 Gynecologic examination [id number] Z01.419 [id number] Zoe Jean CNM [place] [address],[place] [address] 08/24/2024 10:53:11 08/24/2024 11:38:49 Gynecologic examination 99290848 Z01.419 Health Concerns Section Related Observation LastModified by Organization Detai ls LastModified Time None Recorded Concern Status LastModified by Organization Details LastModified Time None Recorded Advance Directives Directive N: Payers Insurance Date Sequence Insurance Name Policy Number Policy Asher Covered Member ID Asher Member ID Guarantor Name 08/23/2024 1 [facility] (O) Mckenzie Briones [id number] Mckenzie Segovia 08/23/2024 1 [facility] - [facility] (O) [id number] Mckenzie Briones [id number] Mckenzie Segovia 08/23/2024 1 [facility] [id number] Mckenzie Briones [id number] Mckenzie Segovia 08/23/2024 2 [place]: [facility] Mckenzie Briones [id number] Mckenzie Segovia Notes Date Note Type Note Provider Name and Address Organization Details Recorded Time 3 text/html Generic HPI TemplateReported by Patient Zoe Jean CNM [address], [place], [address], [facility] 07/02/2022 11:46:28 3 text/html VisitReported by PatientHPIFor quality, patient reportsnsvd. For context, patient reportscomplications of : none,complications of labor: none, complications: none, andfeeding choice: breast and bottle. For associated symptoms, patient reportsno abnormal bleeding,no vaginal discharge,no pelvic pain,laceration well healed,no constipation,no fecal incontinence,no dysuria,no urinary incontinence,no fever,no problems,no mastitis, andnormal mood. For contraception plan, patient reportsdeclines contraception.baby diagnosed with CF metabolic syndromeROS as noted in the HPI Debo zambrano, [facility] 08/16/2022 09:13:51 3 text/html Annual GYNReported by PatientHistoryFor history, patient reportsno gynecologic complaintsandno change in interval history.Genitourinary symptomsFor menstrual cycle, patient reportsnormal menses. For urinary symptoms, patient reportsno hematuriaandno incontinence. For vulva, patient reportsno genital lesion. For vagina, patient reportsnormal vaginal discharge.Breast symptomsFor breast, patient reportsno breast pain,no breast lump, andno nipple discharge.ContraceptionFo r current contraception, patient reportsbirth control not practiced.Endocrine symptomsFor sexual complaints, patient reportsno sexual complaints,no pain during intercourse, andnormal libido. For menopausal symptoms, patient reportsno menopausal symptomsandnormal vaginal lubrication.Psychological symptomsFor psychological symptoms, patient reportsno depression,no anxiety, andno pmdd.Preventative measuresFor preventive measures, patient reportsencourage self breast examinationandencourage regular exercise.no hx abnl pap, pap up to date, baby doing well! passed another sweat test!ROS as noted in the [facility] Zoe Jean CNM [address], [place], [address], [facility] 03/25/2023 20:16:56 5 text/html Annual GYNReported by PatientHistoryFor history, patient reportsno gynecologic complaintsandno change in interval history.Genitourinary symptomsFor menstrual cycle, patient reportsnormal menses. For urinary symptoms, patient reportsno hematuriaandno incontinence. For vulva, patient reportsno genital lesion. For vagina, patient reportsnormal vaginal discharge.Breast symptomsFor breast, patient reportsno breast pain,no breast lump, andno nipple discharge.Endocrine symptomsFor sexual complaints, patient reportsno sexual complaints,no pain during intercourse, andnormal libido. For menopausal symptoms, patient reportsno menopausal symptomsandnormal vaginal lubrication.Psychological symptomsFor psychological symptoms, patient reportsno depression,no anxiety, andno pmdd.Preventative measuresFor preventive measures, patient reportsencourage self breast examination,encourage regular exercise, andencourage no tobacco use.doing well, considering another , daughter good step daughters good too!ROS as noted in the HPI Zoe Jean, [facility] [address], [place], [address], [facility] 08/24/2024 11:35:50 OBGyn Episode Ob Episode Information Episode Created Date Number of Fetuses Patient Bloodtype Patient rh Status Prepregnancy Weight lbs Domestic Partner Domestic Partner Phone Father Name Contact Center Specialist Status 01/02/20 22 1 A Positive 317 CLOSED Fetus Data First Name Last Name Admitted to NICU Weight (g) Sex Living Outcome Pediatric Complications Fetus ID Race Codes Race Delivery Type 3260.19 25 F true Full Term [id number] Vaginal Delivery Problems Problem Notes GBS +, pt informed 06/18 ant ibiotics in labor Problem Name Start Date End Date Resolution Snomed Code Not e Carrier of cystic fibrosis gene mutation [id number] FOB + for CF as well - genetic counseling schd on 02/19 at 0900 for virtual visit. 08/05/22 Update: Elton screen positive for CF. Obesity [id number] class 3 BM I:46.8 Rubella non-immune [id number] M MR PP Harry Calculation Initial Harry Date Initial Exam Date Initial Exam Provider Initial Ultrasound Date Last Menstrual Period Date Ultra Sound Weeks Gestation 07/13/2022 01/01/2022 12/04/2021 10/06/2021 8 Eighteen To Twenty Week Harry Update Ultra Sound Date Fundal Height At Umbil Quickening Date Ultra Sound Latest Weeks Gestation Final Harry Confirmed By Final Harry Confirmed Date Final Harry Date Ultra Sound Latest Days Gestation 0 [email or web address] 01/01/2022 07/13/19 23 0 Pre-hailey Flowsheet Flowsheet Date 01/01/2022 Bermudez Score Blood Edema Fundus Height Fundus Units Glucose Ketones Leukocytes Nitrite Labor Signs Protein Cervic Dilation Cervic Effacement Cervic Station Type Weight in lbs Pre/Post Dialysis Refused BP Diastolic BP Location Tested BP Systolic BP Type Fetus Heart Rate Present Fetus Movement Comments Flowsheet Date 01/01/2022 Bermudez Score Blood Edema Fundus Height Fundus Units Glucose Ketones Leukocytes Nitrite Labor Signs Protein Cervic Dilation Cervic Effacement Cervic Station 12 Type Weight in lbs Pre/Post Dialysis Refused Weight 315.102193167876 BP Diastolic BP Location Tested BP Systolic BP Type 84 R arm 134 sitting Fetus Heart Rate Present A 150 Fetus Movement Comments this patient is a 18-year-ol d 1 at 12 weeks gestation who presents for initial care. She has good dating. She is on vaccinated For COVID. She was given vaccine recommendations. we described care in detail. She has an unremarkable medical, surgical, obstetric history. She will begin routine care. Flowsheet Date 01/29/2022 Bermudez Score Blood Edema Fundus Height Fundus Units Glucose Ketones Leukocytes Nitrite Labor Signs Protein Cervic Dilation Cervic Effacement Cervic Station Type Weight in lbs Pre/Post Dialysis Refused BP Diastolic BP Location Tested BP Systolic BP Type Fetus Heart Rate Present Fetus Movement Comments Flowsheet Date 01/29/2022 Bermudez Score Blood Edema Fundus Height Fundus Units Glucose Ketones Leukocytes Nitrite Labor Signs Protein Cervic Dilation Cervic Effacement Cervic Station neg none none trace Type Weight in lbs Pre/Post Dialysis Refused Weight 310.003090783357 BP Diastolic BP Location Tested BP Systolic BP Type 82 123 Fetus Heart Rate Present Fetus Movement A Yes Comments patient is having some nause a. precautions reviewed gender ID, female f/u 4 weeks anatomy will call if wants afp, Flowsheet Date 02/26/2022 Bermudez Score Blood Edema Fundus Height Fundus Units Glucose Ketones Leukocytes Nitrite Labor Signs Protein Cervic Dilation Cervic Effacement Cervic Station Type Weight in lbs Pre/Post Dialysis Refused BP Diastolic BP Location Tested BP Systolic BP Type Fetus Heart Rate Present Fetus Movement Comments Flowsheet Date 02/26/2022 Bermudez Score Blood Edema Fundus Height Fundus Units Glucose Ketones Leukocytes Nitrite Labor Signs Protein Cervic Dilation Cervic Effacement Cervic Station neg none none trace Type Weight in lbs Pre/Post Dialysis Refused Weight 310.424535758296 BP Diastolic BP Location Tested BP Systolic BP Type 65 124 Fetus Heart Rate Present Fetus Movement A No Comments patient had headaches last w [place] and nausea. Flowsheet Date 03/26/2022 Berumdez Score Blood Edema Fundus Height Fundus Units Glucose Ketones Leukocytes Nitrite Labor Signs Protein Cervic Dilation Cervic Effacement Cervic Station Type Weight in lbs Pre/Post Dialysis Refused BP Diastolic BP Location Tested BP Systolic BP Type Fetus Heart Rate Present Fetus Movement Comments Flowsheet Date 03/26/2022 Bermudez Score Blood Edema Fundus Height Fundus Units Glucose Ketones Leukocytes Nitrite Labor Signs Protein Cervic Dilation Cervic Effacement Cervic Station 24 Type Weight in lbs Pre/Post Dialysis Refused Weight 313.860058252024 BP Diastolic BP Location Tested BP Systolic BP Type 86 R arm 129 sitting Fetus Heart Rate Present A 154 Fetus Movement Comments reviewed ultrasound, aortic arch still not visualized, discussed this with the patient. Reassured the patient. Flowsheet Date 04/15/2022 Bermudez Score Blood Edema Fundus Height Fundus Units Glucose Ketones Leukocytes Nitrite Labor Signs Protein Cervic Dilation Cervic Effacement Cervic Station Type Weight in lbs Pre/Post Dialysis Refused BP Diastolic BP Location Tested BP Systolic BP Type Fetus Heart Rate Present Fetus Movement Comments Flowsheet Date 04/15/2022 Bermudez Score Blood Edema Fundus Height Fundus Units Glucose Ketones Leukocytes Nitrite Labor Signs Protein Cervic Dilation Cervic Effacement Cervic Station neg none none trace Type Weight in lbs Pre/Post Dialysis Refused Weight 312.441899743296 BP Diastolic BP Location Tested BP Systolic BP Type 74 121 Fetus Heart Rate Present A 160 Fetus Movement A Yes Comments Doing well. GCT today. Discu ssed and encouraged Tdap and flu shot, will do. Us today anatomy now complete. EFW 57%. Flowsheet Date 04/30/2022 Bermudez Score Blood Edema Fundus Height Fundus Units Glucose Ketones Leukocytes Nitrite Labor Signs Protein Cervic Dilation Cervic Effacement Cervic Station 29 Type Weight in lbs Pre/Post Dialysis Refused Weight 317.289582168491 BP Diastolic BP Location Tested BP Systolic BP Type 74 R arm 125 sitting Fetus Heart Rate Present A 135 Fetus Movement Comments no complaints, no problems, discussed testing, the reasons, the purpose, the frequency and nature of the testing. Flowsheet Date 05/14/2022 Bermudez Score Blood Edema Fundus Height Fundus Units Glucose Ketones Leukocytes Nitrite Labor Signs Protein Cervic Dilation Cervic Effacement Cervic Station neg none 33 none trace Type Weight in lbs Pre/Post Dialysis Refused Weight 319.47109751571 BP Diastolic BP Location Tested BP Systolic BP Type 73 127 Fetus Heart Rate Present A 150 Fetus Movement A Yes Comments patient is having some cramp ing and pressure. to schedule NST and growth, precautions reviewed, pt got tdap injection, call for preadmit f/u as scheduled Flowsheet Date 05/28/2022 Bermudez Score Blood Edema Fundus Height Fundus Units Glucose Ketones Leukocytes Nitrite Labor Signs Protein Cervic Dilation Cervic Effacement Cervic Station neg none 35 none trace Type Weight in lbs Pre/Post Dialysis Refused Weight 315.991871832016 BP Diastolic BP Location Tested BP Systolic BP Type 73 124 Fetus Heart Rate Present A 131 Present Fetus Movement A Yes Comments patient states that having s ome pressure. nst and us start next week, doing well, precautions reviewed. call for preadmithad strep last week, no fever tx with antibiotics Flowsheet Date 06/04/2022 Bermudez Score Blood Edema Fundus Height Fundus Units Glucose Ketones Leukocytes Nitrite Labor Signs Protein Cervic Dilation Cervic Effacement Cervic Station Type Weight in lbs Pre/Post Dialysis Refused BP Diastolic BP Location Tested BP Systolic BP Type Fetus Heart Rate Present Fetus Movement Comments Flowsheet Date 06/04/2022 Bermudez Score Blood Edema Fundus Height Fundus Units Glucose Ketones Leukocytes Nitrite Labor Signs Protein Cervic Dilation Cervic Effacement Cervic Station Type Weight in lbs Pre/Post Dialysis Refused BP Diastolic BP Location Tested BP Systolic BP Type Fetus Heart Rate Present Fetus Movement Comments Flowsheet Date 06/04/2022 Bermudez Score Blood Edema Fundus Height Fundus Units Glucose Ketones Leukocytes Nitrite Labor Signs Protein Cervic Dilation Cervic Effacement Cervic Station Type Weight in lbs Pre/Post Dialysis Refused Weight 321.097497099868 BP Diastolic BP Location Tested BP Systolic BP Type 82 129 Fetus Heart Rate Present Fetus Movement Comments EFW 46%, doing well, precaut ions reviewed, ask about preadmit next visit, bpp 8/8 f/u one week Flowsheet Date 06/11/2022 Bermudez Score Blood Edema Fundus Height Fundus Units Glucose Ketones Leukocytes Nitrite Labor Signs Protein Cervic Dilation Cervic Effacement Cervic Station Type Weight in lbs Pre/Post Dialysis Refused BP Diastolic BP Location Tested BP Systolic BP Type Fetus Heart Rate Present Fetus Movement Comments Flowsheet Date 06/11/2022 Bermudez Score Blood Edema Fundus Height Fundus Units Glucose Ketones Leukocytes Nitrite Labor Signs Protein Cervic Dilation Cervic Effacement Cervic Station Type Weight in lbs Pre/Post Dialysis Refused BP Diastolic BP Location Tested BP Systolic BP Type Fetus Heart Rate Present Fetus Movement Comments Flowsheet Date 06/11/2022 Bermudez Score Blood Edema Fundus Height Fundus Units Glucose Ketones Leukocytes Nitrite Labor Signs Protein Cervic Dilation Cervic Effacement Cervic Station neg none none trace Type Weight in lbs Pre/Post Dialysis Refused Weight 321.546416174807 BP Diastolic BP Location Tested BP Systolic BP Type 79 136 Fetus Heart Rate Present Fetus Movement A Yes Comments patient states that having s ome pressure. discuss preadmit next visit, doing well, gbs done, bpp 10/10 no cervical check. +FM f/u as scheduled Flowsheet Date 06/18/2022 Bermudez Score Blood Edema Fundus Height Fundus Units Glucose Ketones Leukocytes Nitrite Labor Signs Protein Cervic Dilation Cervic Effacement Cervic Station Type Weight in lbs Pre/Post Dialysis Refused BP Diastolic BP Location Tested BP Systolic BP Type Fetus Heart Rate Present Fetus Movement Comments Flowsheet Date 06/18/2022 Bermudez Score Blood Edema Fundus Height Fundus Units Glucose Ketones Leukocytes Nitrite Labor Signs Protein Cervic Dilation Cervic Effacement Cervic Station Type Weight in lbs Pre/Post Dialysis Refused BP Diastolic BP Location Tested BP Systolic BP Type Fetus Heart Rate Present Fetus Movement Comments Flowsheet Date 06/18/2022 Bermudez Score Blood Edema Fundus Height Fundus Units Glucose Ketones Leukocytes Nitrite Labor Signs Protein Cervic Dilation Cervic Effacement Cervic Station neg trace none neg Type Weight in lbs Pre/Post Dialysis Refused Weight 323.277121383537 BP Diastolic BP Location Tested BP Systolic BP Type 72 112 Fetus Heart Rate Present Fetus Movement A Yes Comments patient is having pressure, swelling and acid reflux. reviewed precautions, doing well, BPP 10/10, disc possible IOL around 39-40 weeks, labor reviewed has preadmit today Flowsheet Date 06/25/2022 Bermudez Score Blood Edema Fundus Height Fundus Units Glucose Ketones Leukocytes Nitrite Labor Signs Protein Cervic Dilation Cervic Effacement Cervic Station Type Weight in lbs Pre/Post Dialysis Refused BP Diastolic BP Location Tested BP Systolic BP Type Fetus Heart Rate Present Fetus Movement Comments Flowsheet Date 06/25/2022 Bermudez Score Blood Edema Fundus Height Fundus Units Glucose Ketones Leukocytes Nitrite Labor Signs Protein Cervic Dilation Cervic Effacement Cervic Station Type Weight in lbs Pre/Post Dialysis Refused BP Diastolic BP Location Tested BP Systolic BP Type Fetus Heart Rate Present Fetus Movement Comments Flowsheet Date 06/25/2022 Bermudez Score Blood Edema Fundus Height Fundus Units Glucose Ketones Leukocytes Nitrite Labor Signs Protein Cervic Dilation Cervic Effacement Cervic Station neg none none trace Type Weight in lbs Pre/Post Dialysis Refused Weight 325.778235076988 BP Diastolic BP Location Tested BP Systolic BP Type 86 136 Fetus Heart Rate Present Fetus Movement A Yes Comments patient states that having p ressure and discharge. next week schedule iol 07/09, will check cervix next week, reviewed kick counts, precautions reviewed f/u one week bpp 04/07 Flowsheet Date 07/02/2022 Bermudez Score Blood Edema Fundus Height Fundus Units Glucose Ketones Leukocytes Nitrite Labor Signs Protein Cervic Dilation Cervic Effacement Cervic Station Type Weight in lbs Pre/Post Dialysis Refused BP Diastolic BP Location Tested BP Systolic BP Type Fetus Heart Rate Present Fetus Movement Comments Flowsheet Date 07/02/2022 Bermudez Score Blood Edema Fundus Height Fundus Units Glucose Ketones Leukocytes Nitrite Labor Signs Protein Cervic Dilation Cervic Effacement Cervic Station Type Weight in lbs Pre/Post Dialysis Refused BP Diastolic BP Location Tested BP Systolic BP Type Fetus Heart Rate Present Fetus Movement Comments Flowsheet Date 07/02/2022 Bermudez Score Blood Edema Fundus Height Fundus Units Glucose Ketones Leukocytes Nitrite Labor Signs Protein Cervic Dilation Cervic Effacement Cervic Station neg trace none trace Type Weight in lbs Pre/Post Dialysis Refused Weight 325.933975803823 BP Diastolic BP Location Tested BP Systolic BP Type 84 132 Fetus Heart Rate Present Fetus Movement A Yes Comments patient is having some swell ing, pressure, nausea and vomiting. efw 46%, has some nausea but has zofran at home, labor precautions reviewed, plan IOL next week cervix externally 2 inner closed /50/-3 Flowsheet Date 08/15/2022 Bermudez Score Blood Edema Fundus Height Fundus Units Glucose Ketones Leukocytes Nitrite Labor Signs Protein Cervic Dilation Cervic Effacement Cervic Station Type Weight in lbs Pre/Post Dialysis Refused Weight 306.106655324816 BP Diastolic BP Location Tested BP Systolic BP Type 77 122 Fetus Heart Rate Present Fetus Movement Comments Menstrual History Last Menstrual Date Menses Monthly On Bcp Conception Prior Menses Frequency Hcg Plus Date Menarche Onset Age 0410/06/2021 Genetic Screening And Infection History Question Response Note Mental Retardation/Autism false Patient's Age Will Be 35 Years Or Older At Estim ated Date of Delivery false Thalassemia (Beninese, Chilean, Mediterranean, Or Background): MCV < 80 false Neural Tube Defect (Meningomyelocele, Spina Bifi da, Or Anencephaly) false Congenital Heart Defect false Down Syndrome false Fran-Sachs (eg, Scientology, Cajun, Sierra Leonean-[place]) f alse Jeff Disease false Sickle Cell Disease Or Trait () false Hemophilia Or Other Blood Disorders false Muscular Dystrophy false Cystic Fibrosis false Braxton's Chorea false Intellectual Disability/Autism false If Yes, Was Person Tested For Fragile X? false Other Inherited Genetic Or Chromosomal Disorder false Maternal Metabolic Disorder (eg, Type 1 Diabetes , PKU) false Patient Or Baby's Father Had A Child With Defects Not Listed Above false Recurrent Loss, Or A Stillbirth false Medications (including Suppl ements, Vitamins, Herbs, OTC Drugs), Illicit/Recreational Drugs, Alcohol false If Yes, Agent(s) And Strength/Dosage false Any Other Genetic History false Live With Someone With TB Or Exposed To TB false Patient Or Partner Has History Of Genital Herpes false Rash Or Viral Illness Since Last Menstrual Perio d false History Of STD, Gonorrhea, Chlamydia, HPV, Syphi lis false Other Infection History false History of HIV false History of Hepatitis false Prior GBS-infected child false Hemoglobinopathy Or Carrier false Other Structural Defect false Recent Travel History Outside of Country false Delivery Information Delivery Date Delivery Type Labor Anesthesia Weeks Gestation Incision Type Labor Labor Length Hrs Delivered By Post Complications Tubal Sterilization Discharge Date Comments 3 Induce d Regional-Ep idural 39.4 false Zoe Jean CNM CF carrier, obesity Discharge Information Feeding Method Contraceptive Method Maternal HG B and HCT Levels
--- OUTSIDE RECORDS SUMMARY | 2025-05-08 12:05 | XMS_ITS | Clinical Summary ---
Author Organization [facility] Address [address] [place] [address] Care Team Providers Care Switch Tender Name Role Phone Unavailable Primary Care Provider Unavailabl e Source Comments [facility],non-owned Affiliates and Associated Physician Practices is amultiple site organization consisting of ambulatory clinics and hospital sitesin [place], [place], [place] and [place]. This disclosure is being madepursuant to the Care Everywhere program and may not contain all information available regarding this patient. Last updated 18.[facility] Allergies No known active allergies Active Problems Problem Noted Date Diagnosed Date Cystic fibrosis carrier 02/19/2022 Immunizations Immunization Administration Dates Next Due DTaP VACCINE IM (6wk-6yrs) 11/08/1997,,02/07/1994,1993, HEP A PEDS 2 DOSE 08/23/2009,01/21/2007 HEP B VACCINE, PED/ADOL 11/08/1997,1993, HIB BOOSTER 03/29/1996,02/07/1994,1993 ,1993 Human Papilloma Virus Vaccine 08/23/2009, 008,01/21/2007 MENINGOCOCAL MENINGITIS 01/20/2008 MMR 12/13/1997,11/08/1997 POLIO OPV 11/08/1997,03/29/1996,1993 ,1993 TD VACCINE 02/26/2004 Family History Medical History Relation Name Comments Hypertension Maternal Grandmother Migraine Maternal Grandmother Migraine Mother Relation Name Status Comments Maternal Grandfather Maternal Grandmother Mother Paternal Grandfather Social History Tobacco Use Types Packs/Day Years Used Date Smoking Tobacco: Never Alcohol Use Standard Drinks/Week Comments No 0 (1 standard drink = 0.6 oz pur e alcohol) Comments No Sex and Gender Information Value Date Recorded Sex Assigned at Not on file Legal Sex Female 8:33 AM WEB CONTENT EXECUTIVE Gender Identity Not on file Sexual Orientation Not on file Last Filed Vital Signs Vital Sign Reading Time Taken Comments Blood Pressure 121/75 08/23/2009 3:55 PM WEB CONTENT EXECUTIVE Pulse 67 08/23/2009 3:55 PM WEB CONTENT EXECUTIVE Temperature 37.2 C (99 F) 08/23/2009 3:55 PM WEB CONTENT EXECUTIVE Respiratory Rate - - Oxygen Saturation - - Inhaled Oxygen Concentration - - Weight 86.1 kg (189 lb 12.8 oz) 08/23/2009 3:55 PM WEB CONTENT EXECUTIVE Height 171.5 cm (5' 7.5) 08/23/2009 3:55 PM WEB CONTENT EXECUTIVE Body Mass Index 29.29 08/23/2009 3:55 PM WEB CONTENT EXECUTIVE Plan of Treatment Health Maintenance Due Date Last Done Comments HIV SCREENING 02/12/2008 HEPATITIS C SCREENING 02/07/2011 DTAP/TDAP/TD VACCINES (7 - Td or Tdap) 02/25/2014 02/26/2004, 11/08/1997, 03/29/1996, Additional history exists DEPRESSION SCREENING 06/29/2024 COVID-19 VACCINE ( season) 2025 INFLUENZA VACCINE (#1) 2025 , 08/17/2019, 07/22/2015 ZOSTER VACCINE (1 of 2) 2043 HIB VACCINE Completed 03/29/1996, 01/27, 1993, Additional history exists HEPATITIS B VACCINE Completed 11/08/1997, 1993, 1993 MENINGOCOCCAL GROUPS A/C/Y/W VACCINE Aged Out 01/20/2008 No longer eligible based on patient's age to complete this topic HPV VACCINE Completed 08/23/2009, 12/28, 01/21/2007 MENINGOCOCCAL (Group B) VACCINE SHARED DECISION-MAKING Aged Out No longer eligible based on patient's age to complete this topic PNEUMOCOCCAL VACCINE Aged Out No long er eligible based on patient's age to complete this topic Insurance MEDICAID - [place] MEDICAID - [facility] [place] [address]
== END 2025-05-08 11:45 | disposition home or self-care (01) ==
PROVIDERS: Emergency Provider Nurse Practitioner Family; PCP Nurse Practitioner Family
DX: R09.82 Postnasal drip (principal); J06.9 Acute upper respiratory infection, unspecified; K21.9 Gastro-esophageal reflux disease without esophagitis; L40.9 Psoriasis, unspecified; E66.01 Morbid (severe) obesity due to excess calories; Z68.42 Body mass index [BMI] 45.0-49.9, adult
CPT/HCPCS: 87081; 87880; 99213; G0463